=== PATIENT | male | born 1955 | race Caucasian/White ===

== ENCOUNTER → 2021-07-18 | Outpatient (CLI) | payer OTHER, MEDICARE, BC ==
[~2021-07-18] MED LIST: CARA1TAB6 PO; LASI40TA9 PO; LEVO175T2 PO; METF-839 PO; MORP1SOL PO; OMEP-218 PO; OXYC-403 PO; PRAV10TA3 PO; VITMTA PO
--- NOTE | 2021-07-18 17:06 | RADONC.CN ---
Radiation Oncology Hx/Consult Radiation Oncology Consult Date of Service: Jul 18, 2021 Pt Identifier Guido Messina is a 65 year old male with a history of metastatic prostate cancer to bone and retroperitoneal nodes. He is seen following recent hospitalization for BL ureter obstruction for consideration of palliative RT. Diagnosis/Treatment History Oncologic History Diagnosed with stage IV prostate cancer 12/2018 in [place] 01/21/19 TRUS biopsy with [place] 4+4=8 in 12 cores 01/21/19 started lupron 02/2019 started abiraterone/prednisone 12/24/19-02/23/20 Enzalutamide 04/13/20-12/22/20 Docetaxel 12/23/20 Cabazitaxel and lupron 12/23/20 Bone scan with mets in cervical spine right acetabulum, T8-9 and sternum 02/18/21 CT pelvis with RP adenopathy 02/19/21-02/22/21 Admitted in [facility] with hematuria 02/24/21 PSA 34 Quad shot 14 Gy in 4 BID fractions to bladder/prostate for hematuria completed 03/16/21 Relocated to [facility] Admitted to [facility] for pyelonephritis/urinary obstruction and had BL nephrostomy tubes placed on 06/28/21 Subsequently admitted to [facility] 07/02/21-07/11/21 for UTI established with heme/onc there and had restaging CT abdomen/pelvis/chest with bulky retroperitoneal adenopathy. He also had a bone scan which showed lesions in the right femur which on subsequent plain films were occult, as well as T9 vertebral body uptake correlating with CT involvement and right iliac/acetabular lesion. Interval History Here with his . Feels better overall since discharge. Still weak/fatigued. Received a transfusion while inpatient, has been receiving these for some time and finds them helpful. He has chronic low back pain which has been present for several years (predating diagnosis) it has been somewhat worse in recent months. Neph tubes have been functioning well. They have not been schooled how to change the dressings. They wish to establish with heme/onc here pending appointment with PCP this week. He uses a walker at home. He requires assistance with some ADLs. Past Medical History: DMII HTN Hypothyroidism Past Surgical History: Hernia repair 1978 TURP Family History: No significant family cancer history Social History: Non-smoker Does not drink Review of Systems Constitutional: Reports: Fatigue; Denies: Weight Loss Eyes: Denies: Pain HEENT: Denies: Head Aches Skin: Denies: Rash Pulmonary: Denies: Dyspnea, Cough Cardiovascular: Reports: Edema; Denies: Chest Pain Gastrointestinal: Reports: Diarrhea; Denies: Abdominal Pain, Hematochezia Genitourinary: Denies: Hematuria Hematologic: Denies: Bruising, Bleeding Excessively, [place]chia Endocrine: Denies: Cold Intolerance Musculoskeletal: Reports: Back pain; Denies: Neck pain, Leg pain, Midthoracic pain Neurological: Reports: Weakness; Denies: Numbness Psych: Reports: Mood Normal Vital Signs Wt 279 lbs T97.2 P 73 R 20 BP 112/73 O2 97% Pain 0 Fatigue 0 General Exam: Alert, Cooperative, No Acute Distress Eye Exam: PERRCELESTINE AUG[facility] ENT EXAM: Atraumatic Chest Exam: Clear to auscultation, Normal air movement Heart Exam: Rate Normal Abdomen Exam: Other (Large pannus, ?fluid); Negative: Tenderness Extremity Exam: Edema (3+ LE edema) Skin Exam: Other skin issue ([place]) Neuro Exam: Normal Speech, Cranial Nerves 3-12 NL Psych Exam: Mental status NL Diagnostic and Laboratory Diagnostic Review Radiologic images, relevant labs and pathology reports were personally reviewed and discussed with Mr. Messina. Assessment and Plan Impression Mr. 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 He is seen following recent hospitalization for BL ureter obstruction for consideration of palliative RT. Stage Prostate cancer [id number] stage IVB Performance Status ECOG 3 Plan We had an extensive discussion with Mr. Messina regarding the diagnosis at hand and available therapeutic options. He has transfusion dependent anemia, overall quite deconditioned, no doubt from his alf ADT use and poor marrow reserve from many cycles of docetaxel as well as moderate burden of bone involvement from the cancer itself. I explained that he may have 1-2 systemic therapy options left, or it may be that he has exhausted his options. He seems to appreciate this. He would like to establish with medical oncology locally, I think this is a good idea especially because blood transfusions improve his fatigue, these could be done here. Hospice has previously been discussed, he is weighing that option, not ready to commit to that yet. I am not sure that his prognosis is <6 months, given that he now has nephrostomy tubes which are functioning well, and that aside from the adenopathy in the RP, he only has bone metastases and no visceral involvement. With respect to the bone disease, T9-10 look the worst to me most of the vertebral body of T9 is involved by tumor, he has no neuropathic symptoms or pain at this site, however pending fracture is a concern, thus I recommend we treat this area. I would give 20 Gy in 5 fractions. With respect to his adenopathy, it is the cause of the ureteral obstruction which has been the cause of his upper tract infection/uropathy. I think we can treat this safely with minimal toxicity as well. I explained that it is unclear to me whether or not it will resolve his uropathy, but it offers a chance of eliciting some positive response. Prior to neph tube placement he was still urinating small amounts. I would give 20 Gy in 5 fractions to this site as well. I will use DCA planning, and given the location of these areas, we may be able to encompass both in a monoisocentric plan. We discussed the logistics of receiving radiation therapy in detail including the need for a 1-time planning session. This can occur Saturday. I reviewed the side effects of treatment including fatigue, diarrhea and abdominal pain. After discussing the risks, benefits and alternatives to radiation therapy, Mr. Messina was amenable to pursuing radiotherapy. All questions were answered to the patient's satisfaction. We instructed the patient that if there were any questions,concerns or changes in clinical status in the interim to contact us. I will also check PSA/testosterone when he comes in as I do not see a recent measurement in his notes from admissions. Recommendations Palliative RT 20 Gy in 5 fractions to T9-10 and RP adenopathy with DCA planning Simulation this week Treatment to start next week Check PSA/testosterone Billing Statement Total time of [35] minutes was spent preparing for the visit [3], obtaining HPI [5], examining the patient [2], reviewing diagnostic tests [5], discussing management options [9], coordinating care [2], and writing this note [9]. SILVA ROMAN MD Jul 18, 2021 17:06
== END ==
LOC: M ONCR 14:21
PROVIDERS: ATTEND General Practice
DX: C61 Malignant neoplasm of prostate (principal); C79.51 Secondary malignant neoplasm of bone; C77.2 Secondary and unspecified malignant neoplasm of intra-abdominal lymph nodes; E03.9 Hypothyroidism, unspecified; E11.9 Type 2 diabetes mellitus without complications; I10 Essential (primary) hypertension; Z79.899 Other long term (current) drug therapy

== ENCOUNTER 2021-07-21 10:46 | Outpatient (RCR) | payer BC, MEDICARE, OTHER ==
[~2021-07-21 10:46] MED LIST changes: -MORP1SOL PO
[2021-07-21] MEDS ORDERED: MORP1SOL PO (11:47)
[2021-09-11] MEDS ORDERED: PRED10TA2 (11:36)
== END 2021-07-25 ==
LOC: M ONCR 10:46
PROVIDERS: ATTEND General Practice
DX: C79.51 Secondary malignant neoplasm of bone (principal)

== ENCOUNTER 2021-07-24 07:58 | Outpatient (RCR) | payer OTHER, MEDICARE, BC ==
[2021-07-21 12:35] LABS: BASO # 0.1 10^3/uL (0.0-0.2); BASO % 0.4 % (0.0-1.0); LYMPH # 0.6 10^3/uL (1.5-5.0); LYMPH % 4.6 % (24.0-44.0); MEAN CORPUSCULAR HEMOGLOBIN 25.6 pg (27.0-33.0); MEAN CORPUSCULAR HGB CONC 29.6 g/dl (32.0-36.5); MEAN CORPUSCULAR VOLUME 86.5 fl (80.0-96.0); MONO # 1.7 10^3/uL (0.0-0.8); MONO % 12.1 % (2.0-8.0); NEUTROPHILS # 11.5 10^3/uL (1.5-8.5); PLATELET COUNT, AUTOMATED 685 10^3/uL (150-450); RED BLOOD COUNT 2.66 10^6/uL (4.30-6.10)
[2021-07-21 12:39] LABS: HEMOGLOBIN 6.8 g/dl (13.5-17.5)
[2021-07-21 13:49] LABS: ALBUMIN 1.9 GM/DL (3.2-5.2); ALT/SGPT 16 U/L (12-78); BILIRUBIN,TOTAL 0.4 MG/DL (0.2-1.0); BLOOD UREA NITROGEN 70 MG/DL (7-18); CALCIUM LEVEL 8.1 MG/DL (8.8-10.2); CARBON DIOXIDE LEVEL 22 MEQ/L (21-32); CHLORIDE LEVEL 101 MEQ/L (98-107); CREATININE FOR GFR 2.03 MG/DL (0.70-1.30); GLUCOSE, FASTING 122 MG/DL (70-100); POTASSIUM SERUM 5.6 MEQ/L (3.5-5.1); SODIUM LEVEL 133 MEQ/L (136-145); TESTOSTERONE < 7 NG/DL (241-827); TOTAL PROTEIN 6.2 GM/DL (6.4-8.2)
[2021-07-24] VITALS (7 sets, daily range): BP systolic 101–115; BP diastolic 65–73
[~2021-07-24 07:58] MED LIST changes: +MORP1SOL PO
--- NOTE | 2021-07-24 10:25 | RADENCPD ---
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 Informed consent was obtained from Guido prior to transfusion. I will continue to monitor his CBC q2w until he establishes with heme onc at our center. SILVA ROMAN MD Jul 24, 2021 10:25
[2021-09-11] MEDS ORDERED: PRED10TA2 (11:36)
== END 2021-07-25 ==
LOC: M ONCR 07:58
PROVIDERS: ATTEND General Practice
DX: C61 Malignant neoplasm of prostate (principal); C79.51 Secondary malignant neoplasm of bone
CPT/HCPCS: 36430; 36591; 77295; 77300; 77334; 80053; 84403; 85025; 86850; 86900; 86901; 86920; G0103; P9016

== ENCOUNTER 2021-07-31 20:27 | Emergency (ER) | payer OTHER, MEDICARE, BC ==
[~2021-07-31] VITALS: Ht 170.2 cm; Wt 127.3 kg
[2021-07-31] MEDS ORDERED: ONDA-83 PO (20:50)
[2021-07-31 22:06] LABS: BASO # 0.1 10^3/uL (0.0-0.2); BASO % 0.3 % (0.0-1.0); HEMATOCRIT 28.1 % (42.0-52.0); HEMOGLOBIN 8.2 g/dl (13.5-17.5); LYMPH # 0.5 10^3/uL (1.5-5.0); LYMPH % 3.6 % (24.0-44.0); MEAN CORPUSCULAR HEMOGLOBIN 24.7 pg (27.0-33.0); MEAN CORPUSCULAR HGB CONC 29.2 g/dl (32.0-36.5); MEAN CORPUSCULAR VOLUME 84.6 fl (80.0-96.0); MONO # 1.1 10^3/uL (0.0-0.8); MONO % 7.8 % (2.0-8.0); NEUTROPHILS # 12.6 10^3/uL (1.5-8.5); NEUTROPHILS % 87.2 % (36.0-66.0); PLATELET COUNT, AUTOMATED 571 10^3/uL (150-450); RED BLOOD COUNT 3.32 10^6/uL (4.30-6.10); WHITE BLOOD COUNT 14.4 10^3/uL (4.0-10.0)
--- NOTE | 2021-07-31 22:21 | REPVR ---
PROCEDURE INFORMATION: Exam: XR Chest Exam date and time: 07/31/2021 9:32 PM Age: 65 years old Clinical indication: Device placement; PowerPort; Additional info: Assess if patient has PowerPort. TECHNIQUE: Imaging protocol: XR of the chest. Views: 1 view. COMPARISON: CT CHEST W/O CONTRAST - OUTSIDE PRIOR 07/06/2021 6:19 PM (The report from this study was not available for review at the time of this interpretation.) FINDINGS: Tubes, catheters and devices: There is a right internal jugular PowerPort, with the line terminating in the proximal superior vena cava. Lungs: There is left basilar atelectasis. No lung consolidation or pulmonary edema is noted. Pleural spaces: Unremarkable. No pleural effusion. No pneumothorax. Heart/Mediastinum: There is a large hiatal hernia, which can also be seen in the CT chest on 07/06/2021. No cardiomegaly is noted. Bones/joints: There are endplate spurs in the thoracic spine. There are osteoblastic lesions in the thoracic spine, sternum, bilateral scapula, left clavicle, left humeral head, and ribs, which are better appreciated in the CT chest on 07/06/2021. IMPRESSION: 1. Right internal jugular PowerPort, with the line terminating in the proximal superior vena cava. 2. 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 3. Large hiatal hernia. Electronically signed by: Thor Gifford On 07/31/2021 22:20:54 PM
[2021-07-31] MEDS ORDERED: MORPHINE 2 MG/ML 1ML VIAL (J2270) IV ONE (22:50)
[2021-07-31] MEDS ORDERED: LEVO750T14 PO (22:57)
[2021-07-31 23:08] LABS: CALCIUM LEVEL 7.7 MG/DL (8.8-10.2); CREATININE FOR GFR 1.3 MG/DL (0.70-1.30); GLOMERULAR FILTRATION RATE 58.6 (>49); MAGNESIUM LEVEL 1.6 MG/DL (1.8-2.4); POTASSIUM SERUM 4.3 MEQ/L (3.5-5.1)
[2021-07-31 23:50] VITALS: BP 126/71
[2021-08-01] MEDS ORDERED: oxyCODONE 10 MG CR TAB PO ONE
== END 2021-07-31 23:52 | disposition home or self-care (01) ==
LOC: M ED 20:27
DX: N39.0 Urinary tract infection, site not specified (principal); T83.092A Other mechanical complication of nephrostomy catheter, initial encounter; C61 Malignant neoplasm of prostate; E11.9 Type 2 diabetes mellitus without complications; E78.5 Hyperlipidemia, unspecified; E03.9 Hypothyroidism, unspecified; Z79.84 Long term (current) use of oral hypoglycemic drugs; Z88.6 Allergy status to analgesic agent; Z90.79 Acquired absence of other genital organ(s)
CPT/HCPCS: 71045; 80048; 81001; 83735; 85025; 87086; 96374; 96375; 99284; J1642; J2270

== ENCOUNTER 2021-08-09 11:36 | Outpatient (RCR) | payer OTHER, MEDICARE, BC ==
[~2021-08-09 11:36] MED LIST changes: +LEVO750T14 PO; +ONDA-83 PO
[2021-08-22] MEDS ORDERED: FURO20TA2 PO (14:16)
== END 2021-08-24 ==
LOC: M ONCR 11:36
PROVIDERS: ATTEND General Practice
DX: C79.51 Secondary malignant neoplasm of bone (principal)

== ENCOUNTER 2021-09-23 14:34 | Emergency (ER) | payer OTHER, MEDICARE ==
[~2021-09-23] VITALS: Ht 170.2 cm; Wt 122.7 kg
[~2021-09-23 14:34] MED LIST changes: +FURO20TA2 PO; +PRED10TA2
[2021-09-23 15:20] LABS: HEMATOCRIT 30.1 % (42.0-52.0); HEMOGLOBIN 8.8 g/dl (13.5-17.5); MEAN CORPUSCULAR HEMOGLOBIN 25.7 pg (27.0-33.0); MEAN CORPUSCULAR HGB CONC 29.2 g/dl (32.0-36.5); PLATELET COUNT, AUTOMATED 457 10^3/uL (150-450); RED BLOOD COUNT 3.42 10^6/uL (4.30-6.10); WHITE BLOOD COUNT 9.8 10^3/uL (4.0-10.0)
[2021-09-23 16:14] VITALS: BP 134/74
[2021-09-23 16:47] LABS: CALCIUM LEVEL 8.6 MG/DL (8.8-10.2); CREATININE FOR GFR 1.84 MG/DL (0.70-1.30); GLOMERULAR FILTRATION RATE 39.3 (>49); POTASSIUM SERUM 4.8 MEQ/L (3.5-5.1)
== END 2021-09-23 16:16 | disposition short-term general hospital (02) ==
LOC: M ED 14:34
DX: T83.022A Displacement of nephrostomy catheter, initial encounter (principal); Z85.46 Personal history of malignant neoplasm of prostate; Z92.3 Personal history of irradiation; E11.9 Type 2 diabetes mellitus without complications; Z87.891 Personal history of nicotine dependence; Z79.84 Long term (current) use of oral hypoglycemic drugs; Z79.899 Other long term (current) drug therapy; Z88.5 Allergy status to narcotic agent